=== PATIENT | female | born 1930 | race Caucasian/White ===

== ENCOUNTER 2017-01-21 19:27 | Inpatient (IN) | payer MEDICARE, OTHER ==
[~2017-01-21] VITALS: Ht 170.2 cm; Wt 92.2 kg
[2017-01-21] MEDS ORDERED: SOD CHLORIDE 0.9% 1,000 ML IV STA (19:38)
--- NOTE | 2017-01-21 21:02 | RADRPT ---
PROCEDURE: XR Hip. CLINICAL INDICATION: Fall. TECHNIQUE: AP and frog lateral views of the right hip were performed. COMPARISON: No. FINDINGS: There is an acute intertrochanteric fracture of the proximal right femur. The innominate bone in th e right SI joint are normal as visualized. IMPRESSION: 1. Acute displaced impacted intertrochanteric fracture involving the proximal right femur. RPTAT:AAJJ Physician Seamus Date Time Electronically viewed and signed by Kayode Boyd Physician on 01/21/2017 21:02 BOOGIE/
--- NOTE | 2017-01-21 21:04 | RADRPT ---
PROCEDURE: Right knee x-ray CLINICAL INDICATION: Fall with right knee pain. TECHNIQUE: AP, lateral and oblique views of the knee were obtained. COMPARISON: None FINDINGS: There is narrowing of the joint between the femur and tibia. There spurs off the medial lateral fem oral and tibial condyles and articular surface of the patella. There is a small effusion. IMPRESSION: 1. Osteoarthritis of the right knee with narrowing of the patellofemoral and femoral tibial joint s paces. 2. No evidence of an acute fracture. 3. Small joint space effusion. RPTAT:AAJJ Physician Seamus Date Time Electronically viewed and signed by Kayode Boyd Physician on 01/21/2017 21:04 /
[2017-01-21] MEDS ORDERED: WARF4TAB52 PO (21:19)
[2017-01-21 21:35] LABS: ADD UMIC YES; URINE BILIRUBIN (Dip) NEGATIVE (NEGATIVE); URINE BLOOD (Dip) TRACE (NEGATIVE); URINE COLOR LT. YELLOW (YELLOW); URINE GLUCOSE (Dip) NEGATIVE (NEGATIVE); URINE KETONES (Dip) NEGATIVE (NEGATIVE); URINE LEUKOCYTE ESTERASE (Dip) TRACE (NEGATIVE); URINE NITRITE (Dip) NEGATIVE (NEGATIVE); URINE TOTAL PROTEIN (Dip) NEGATIVE (NEGATIVE); URINE UROBILINOGEN (Dip) 1.0 E.U./dL (0.1-1.0)
[2017-01-21 22:01] LABS: BACTERIA,URINE FEW; SQUAMOUS EPITHELIAL CELL,UR FEW; URINE RBCS 0-2 /HPF (0)
[2017-01-21 22:06] LABS: ADD SCAN DIFF NO
[2017-01-21 22:08] LABS: BASOPHILS % 0.4 % (0.0-2.0); EOSINOPHILS # 0.2 10^3/ul (0.0-0.5); EOSINOPHILS % 1.7 % (0.0-7.0); HEMATOCRIT 44.8 % (37.0-47.0); HEMOGLOBIN 14.5 g/dl (12.0-16.0); LYMPHOCYTES # 2.1 10^3/ul (0.8-2.9); LYMPHOCYTES % 22.7 % (15.0-51.0); MEAN CORPUSCULAR HEMOGLOBIN 28.6 pg (29.0-33.0); MEAN CORPUSCULAR HGB CONC 32.4 g/dl (32.0-37.0); MEAN CORPUSCULAR VOLUME 88.4 fl (82.0-101.0); MONOCYTE # 0.9 10^3/ul (0.3-0.9); MONOCYTES % 9.9 % (0.0-11.0); NEUTROPHILS % 64.5 % (39.0-77.0); PLATELET COUNT 176 10^3/UL (140-415); RED BLOOD COUNT 5.07 10^6/ul (4.20-5.40); RED CELL DISTRIBUTION WIDTH 14.6 % (11.5-14.5); WHITE BLOOD COUNT 9.3 10^3/ul (4.8-10.8)
[2017-01-21 22:18] LABS: INR 2.16; PROTIME 24.3 Sec (12.2-14.2); PT RATIO 1.9
[2017-01-21 22:33] LABS: ALBUMIN 3.8 g/dl (3.3-4.9); CHLORIDE 100 mmol/L (97-110); POTASSIUM 3.7 mmol/L (3.5-5.1); SODIUM 137 mmol/L (135-144)
[2017-01-21 22:36] LABS: ALANINE AMINOTRANSFERASE 34 IU/L (13-69); ALBUMIN/GLOBULIN RATIO 1.11; ALKALINE PHOSPHATASE 75 IU/L (42-121); ANION GAP 12 (8-16); ASPARTATE AMINO TRANSFERASE 40 IU/L (15-46); BILIRUBIN,INDIRECT 0.5 mg/dl (0-1.1); BILIRUBIN,TOTAL 0.5 mg/dl (0.2-1.3); BLOOD UREA NITROGEN 16 mg/dl (7-20); CARBON DIOXIDE 29 mmol/L (21-31); CREATININE 0.84 mg/dl (0.44-1.00); GLUCOSE 111 mg/dl (70-220); TOTAL PROTEIN 7.2 g/dl (6.1-8.1)
[2017-01-21 22:37] LABS: CALCIUM 8.8 mg/dl (8.4-10.2)
--- NOTE | 2017-01-21 22:53 | ERA ---
ER Documentation Chief Complaint Date/Time DATE: 01/21/17 TIME: 22:47 Chief Complaint rt hip pain radiating to rt thigh r/t ground level fall,on Warfarin HPI This is a very pleasant 86-year-old female that presents to the emergency department brought in by EMS after the patient had a mechanical trip and fall while feeding her birds in her garden. She landed on her right hip and was unable to get up secondary to the pain. She indicates she is experiencing 10 out of 10 pain in her right hip and radiates to her thigh and knee. She did not hit her head or lose consciousness. She is on warfarin she has a history of pulmonary embolisms. She denies any shortness of breath at rest or exertion at this time and has no chest pain. She did not take any analgesic medication prior to arrival. ROS All systems reviewed and are negative except as per history of present illness. Medications Home Meds Reported Medications Warfarin Sodium* (Warfarin Sodium*) Unknown Strength Tablet, PO DAILY, TAB PATIENT NOT ABLE TO TELL THE DOSAGE 01/21/17 Allergies Allergies: Coded Allergies: No Known Allergy (Unverified , 01/21/17) PMhx/Soc History of Surgery: Yes (GALL BLADDER REMOVAL) Anesthesia Reaction: No Hx Neurological Disorder: No Hx Respiratory Disorders: Yes (PE ON WARFARIN) Hx Cardiac Disorders: No Hx Psychiatric Problems: No Hx Miscellaneous Medical Probl: No Hx Alcohol Use: No Hx Substance Use: No Hx Tobacco Use: No Smoking Status: Never smoker Physical Exam Vitals Vital Signs Date Time Temp Pulse Resp B/P Pulse Ox O2 Delivery O2 Flow Rate FiO2 01/21/17 19:37 97.7 71 18 176/79 96 Physical Exam Constitutional:Well-developed. Well-nourished. HEENT:Normocephalic. Atraumatic.Pupils were equal round reactive to light. Moist mucous membranes.No tonsillar exudates. No nasal septal hematoma. No hemotympanum. Neck: No nuchal rigidity. No lymphadenopathy. No posterior cervical spine tenderness or step-offs. Respiratory: Not using accessory muscles of respiration.Lungs were clear to auscultation bilaterally. No rhonchi. No rales. No wheezing. Cardiovascular: Regular rate regular rhythm.No murmurs. No rubs were appreciated.S1, S2 normal. Distal pulses are palpable 2+ bilaterally. GI: Abdomen was soft. Nontender. Non Distended. No pulsatile abdominal masses or bruits. No rebound. No guarding. Bowel sounds were present and normal. Muscle skeletal: Full range of motion the bilateral upper extremities. Right lower extremity is shortened and externally rotated. Significant tenderness over the proximal right femur. Tenderness over the right patella. Stress testing of the right knee unable to be obtained due to suspected fracture of the right hip and patient unable to lift the right lower extremity against gravity. Muscular strength 4 out of 5 in the left lower extremity but movement of the left lower extremity aggravated the pain at the right hip. Skin: No petechia, no purpura. No lesions on the palms or the soles of the feet. No maculopapular rash. NEURO: Patient was alert, awake, orientated x3.No facial droop. Gait not observed due to suspected fracture of the right hip. speech had regular rate and rhythm. No focal neurological deficits. Result Diagram: 01/21/17205401/21/172054 Results 24 hrs Laboratory Tests Test 01/21/17 20:55 01/21/17 21:20 White Blood Count 9.310^3/ul Red Blood Count 5.0710^6/ul Hemoglobin 14.5g/dl Hematocrit 44.8% Mean Corpuscular Volume 88.4fl Mean Corpuscular Hemoglobin 28.6pg Mean Corpuscular Hemoglobin Concent 32.4g/dl Red Cell Distribution Width 14.6% Platelet Count 03949^3/UL Mean Platelet Volume 11.0fl Neutrophils % 64.5% Lymphocytes % 22.7% Monocytes % 9.9% Eosinophils % 1.7% Basophils % 0.4% Nucleated Red Blood Cells % 0.0/100WBC Neutrophils # 6.010^3/ul Lymphocytes # 2.110^3/ul Monocytes # 0.910^3/ul Eosinophils # 0.210^3/ul Basophils # 0.010^3/ul Nucleated Red Blood Cells # 0.010^3/ul Prothrombin Time 24.3Sec Prothrombin Time Ratio 1.9 INR International Normalized Ratio 2.16 Activated Partial Thromboplast Time 33.0Sec Sodium Level 137mmol/L Potassium Level 3.7mmol/L Chloride Level 100mmol/L Carbon Dioxide Level 29mmol/L Anion Gap 12 Blood Urea Nitrogen 16mg/dl Creatinine 0.84mg/dl Glucose Level 111mg/dl Calcium Level 8.8mg/dl Total Bilirubin 0.5mg/dl Direct Bilirubin 0.00mg/dl Indirect Bilirubin 0.5mg/dl Aspartate Amino Transf (AST/SGOT) 40IU/L Alanine Aminotransferase (ALT/SGPT) 34IU/L Alkaline Phosphatase 75IU/L Troponin I < 0.012ng/ml Total Protein 7.2g/dl Albumin 3.8g/dl Globulin 3.40g/dl Albumin/Globulin Ratio 1.11 Urine Color LT. YELLOW Urine Clarity CLEAR Urine pH 6.5 Urine Specific [place] 1.010 Urine Ketones NEGATIVE Urine Nitrite NEGATIVE Urine Bilirubin NEGATIVE Urine Urobilinogen 1.0 E.U./dL Urine Leukocyte Esterase TRACE Urine Microscopic RBC 0-2/HPF Urine Microscopic WBC 0-2/HPF Urine Squamous Epithelial Cells FEW Urine Bacteria FEW Urine Hemoglobin TRACE Urine Glucose NEGATIVE% Urine Total Protein NEGATIVE Current Medications Medications (Trade) Dose Ordered Sig/Chata Route PRN Reason Start Time Stop Time Status Last Admin Dose Admin Sodium Chloride (NS) 1,000 ml @ 1,000 mls/hr Q1H STAT IV 01/21/17 19:38 01/21/17 20:37 DC 01/21/17 20:51 Procedures/MDM This is a very pleasant 86-year-old female that presented to the emergency department after a ground-level fall. The patient is on blood thinners and IV access was immediately established, patient was placed in a adult care manager with continuous pulse oximetry. She was given intravenous morphine for analgesic control followed by Zofran as an antiemetic. I obtained three-view radiographs of the right hip on the right knee. The patient had no fractures or dislocation of her right knee. Radiographic imaging of the right hip reviewed by both myself the radiologist indicated an acute displaced impacted intertrochanteric fracture involving the proximal right femur. I obtained a 12-lead EKG for preoperative evaluation. 12 Lead EKG tracing ordered and reviewed by myself showed: Normal sinus rhythm of 66 bpm and no arrhythmia. MD interval prolonged at 236 ms with a first-degree AV block. QRS duration normal. No ST segment elevation No ST segment depression. No changes consistent with acute ischemia. Critical Care: Time: 55 minutes Treatments/Evaluations: Close monitoring and treatment of unstable vital signs, cardiorespiratory, and neurologic status, while maintaining tight balance of fluid, respiratory, and cardiac interventions. Time does not include performing any of the above billable procedures. The patient states her primary care physician is Dr. Anabel Cole. Multiple attempts were made to reach him but after several hours been unsuccessful to get hold of him he was admitted to the panel physician Dr. Rodriguez. The patient will be admitted to the medical surgical floor in serious condition with anticipated stay of greater than 2 midnights. I have placed an orthopedic consult and currently waiting to speak to the orthopedic surgeon Departure Diagnosis: Primary Impression: Closed intertrochanteric fracture of right hip Qualified Code: S72.141A - Closed intertrochanteric fracture of right hip, initial encounter Condition: Serious PIOSHIRLENE Jan 21, 2017 22:53
[2017-01-21 23:00] LABS: TROPONIN-I < 0.012 ng/ml (0.00-0.12)
[2017-01-21] MEDS ORDERED: ONDANSETRON 4 MG INJ IV STA (23:24)
[2017-01-21] MEDS ORDERED: morphine 2 MG INJ IV STA (23:24)
[2017-01-21] MEDS ORDERED: ONDANSETRON 4 MG INJ IV PRN (23:30)
[2017-01-22] VITALS (18 sets, daily range): BP systolic 93–145; BP diastolic 41–74; PULSE 74–110; RESP 12–24; TEMP 97.9; Ht 170.2 cm; Wt 92.2 kg
[2017-01-22] MEDS ORDERED: NACL 0.9% 3 ML SYG IV SCH (01:00)
[2017-01-22] MEDS ORDERED: ALBUTEROL/IPRATROPIUM (NEB) 3 ML AMP HHN PRN (01:00)
[2017-01-22] MEDS ORDERED: ACETAMINOPHEN 325 MG TAB PO PRN (01:00)
[2017-01-22] MEDS ORDERED: OXYCODONE/ACETAMINOPHEN (5/325) TAB PO PRN (01:00)
[2017-01-22] MEDS ORDERED: morphine 2 MG INJ IV PRN ×2 (01:00→20:30)
[2017-01-22] MEDS ORDERED: ONDANSETRON 4 MG INJ IV PRN ×3 (01:00→21:00)
[2017-01-22] MEDS: DEXTROSE 5%-0.45% NACL 1,000 ML IV SCH ×2 (02:25→11:44)
[2017-01-22 05:46] LABS: ADD SCAN DIFF NO
--- NOTE | 2017-01-22 05:47 | HP ---
Date/Time of Note Date/Time of Note DATE: 01/22/17 TIME: 05:43 Assessment/Plan VTE Prophylaxis VTE Prophylaxis Intervention: SCD's Lines/Catheters IV Catheter Type (from Nrsg): Saline Lock Urinary Cath still in place: No (WILL GET a order) Assessment/Plan Assessment/Plan IMPRESSION 1. Right Proximal Femur fracture, 2/2 mechanical fall 2. Hx of PE on coumadin, INR 2.1 PLAN Pain mgmt Awaiting Ortho eval Hold coumadin HPI/ROS Admit Date/Time Admit Date/Time Jan 21, 2017 at 23:22 Hx of Present Illness Patient is an 86 yo female with hx of PE on coumadin who had a mechanical fall while feeding her birds. xray in ER showed Acute displaced impacted intertrochanteric fracture involving the proximal right femur. Ortho has been consulted. She denied chest pain, SOB, palpitations or lightheadedness. . PMH/Family/Social Past Medical History Medical History: other (Pulmonary Embolism) Past Surgical History Past Surgical Hx: cholecystectomy Social History Alcohol Use: none Smoking Status: Never smoker Drug Use: none Exam/Review of Systems Vital Signs Vitals Vital Signs Date Time Temp Pulse Resp B/P Pulse Ox O2 Delivery O2 Flow Rate FiO2 01/22/17 02:03 21 01/22/17 01:30 98.3 77 19 145/71 94 Room Air Exam Constitutional: alert, oriented Head: atraumatic, normocephalic Eyes: EOMI, PERRL Respiratory: clear to auscultation, normal air movement Cardiovascular: nl pulses, regular rate and rhythm Gastrointestinal: non-tender, soft Musculoskeletal: other (right hip tenderness) Extremities: normal pulses Labs Result Diagram: 01/21/17205401/21/172054 Medications Medications Current Medications Dextrose/Sodium Chloride (D5-1/2ns) 1,000 ml @ 100 mls/hr Q10H IV Last administered on 01/22/17t 02:25; Admin Dose 100 MLS/HR; Start 01/22/17 at 00:57 Ondansetron HCl (Zofran Inj) 4 mg Q6H PRN IV NAUSEA AND/OR VOMITING; Start at 01:00 Acetaminophen (Tylenol Tab) 650 mg Q6H PRN PO PAIN LEVEL 1-3 OR FEVER; Start at 01:00 Oxycodone/ Acetaminophen (Percocet (5/ 325)) 1 tab Q6H PRN PO MODERATE PAIN LEVEL 4-6; Start 01/22/17 at 01:00 Morphine Sulfate (morphine) 3 mg Q4H PRN IV SEVERE PAIN LEVEL 7-10; Start 01/22 at 01:00 MANJINDER TRUJILLO MD Jan 22, 2017 05:47
[2017-01-22 06:10] LABS: INR 2.37; PARTIAL THROMBOPLASTIN TIME 34.9 Sec (25.0-35.0); PROTIME 26.2 Sec (12.2-14.2)
[2017-01-22 06:17] LABS: ALBUMIN 3.2 g/dl (3.3-4.9); ALBUMIN/GLOBULIN RATIO 1.06; BILIRUBIN,INDIRECT 0.7 mg/dl (0-1.1); BILIRUBIN,TOTAL 0.7 mg/dl (0.2-1.3); CALCIUM 8.1 mg/dl (8.4-10.2); CREATININE 0.67 mg/dl (0.44-1.00); POTASSIUM 4.3 mmol/L (3.5-5.1); TOTAL PROTEIN 6.2 g/dl (6.1-8.1)
[2017-01-22] MEDS ORDERED: CEFAZOLIN 1 GM INJ ONE (07:00)
[2017-01-22 10:43] LABS: BASOPHILS % 0.3 % (0.0-2.0); HEMATOCRIT 45.2 % (37.0-47.0); HEMOGLOBIN 13.7 g/dl (12.0-16.0); LYMPHOCYTES # 1.4 10^3/ul (0.8-2.9); LYMPHOCYTES % 13.8 % (15.0-51.0); MEAN CORPUSCULAR HEMOGLOBIN 27.3 pg (29.0-33.0); MEAN CORPUSCULAR HGB CONC 30.3 g/dl (32.0-37.0); MEAN PLATELET VOLUME 11.3 fl (7.4-10.4); MONOCYTE # 1.3 10^3/ul (0.3-0.9); MONOCYTES % 12.6 % (0.0-11.0); NEUTROPHIL # 7.5 10^3/ul (1.6-7.5); NEUTROPHILS % 72.9 % (39.0-77.0); PLATELET COUNT 142 10^3/UL (140-415); RED BLOOD COUNT 5.02 10^6/ul (4.20-5.40); RED CELL DISTRIBUTION WIDTH 14.9 % (11.5-14.5); WHITE BLOOD COUNT 10.3 10^3/ul (4.8-10.8)
--- NOTE | 2017-01-22 17:20 | PN ---
Date/Time of Note Date/Time of Note DATE: 01/22/17 TIME: 17:16 Assessment/Plan VTE Prophylaxis VTE Prophylaxis Intervention: SCD's Lines/Catheters IV Catheter Type (from Nrs): Saline Lock Assessment/Plan Chief Complaint/Hosp Course 1. Right Proximal Femur fracture, 2/2 mechanical fall -Ortho consult appreciated pt has no Cardiac Hx or Hx of CVA benefits of surgery outweigh risks plan for surgery today -pain management 2. Hx of PE on coumadin, INR 2.1 -Hold coumadin 2/2 surgery PPx- SCD's Problems: Subjective 24 Hr Interval Summary Constitutional: no complaints Exam/Review of Systems Vital Signs Vitals Vital Signs Date Time Temp Pulse Resp B/P Pulse Ox O2 Delivery O2 Flow Rate FiO2 01/22/17 07:48 98.1 73 18 136/67 96 01/22/17 02:03 21 01/22/17 01:30 Room Air Intake and Output 01/21/17 01/21/17 01/22/17 15:00 23:00 07:00 Intake Total 400 ml Output Total 800 ml Balance -400 ml Exam Constitutional: alert, oriented Respiratory: clear to auscultation Cardiovascular: regular rate and rhythm Gastrointestinal: soft, No distended Musculoskeletal: nl extremities to inspection Results Result Diagram: 01/22/17 0453 01/22/17 0453 Results 24 hrs Laboratory Tests Test 01/21/17 20:55 01/21/17 21:20 01/22/17 04:53 White Blood Count 9.3 10.3 Red Blood Count 5.07 5.02 Hemoglobin 14.5 13.7 Hematocrit 44.8 45.2 Mean Corpuscular Volume 88.4 90.0 Mean Corpuscular Hemoglobin 28.6 L 27.3 L Mean Corpuscular Hemoglobin Concent 32.4 30.3 L Red Cell Distribution Width 14.6 H 14.9 H Platelet Count 176 142 Mean Platelet Volume 11.0 H 11.3 H Neutrophils % 64.5 72.9 Lymphocytes % 22.7 13.8 L Monocytes % 9.9 12.6 H Eosinophils % 1.7 0.0 Basophils % 0.4 0.3 Nucleated Red Blood Cells % 0.0 0.0 Neutrophils # 6.0 7.5 Lymphocytes # 2.1 1.4 Monocytes # 0.9 1.3 H Eosinophils # 0.2 0.0 Basophils # 0.0 0.0 Nucleated Red Blood Cells # 0.0 0.0 Prothrombin Time 24.3 H 26.2 H Prothrombin Time Ratio 1.9 2.0 INR International Normalized Ratio 2.16 2.37 Activated Partial Thromboplast Time 33.0 34.9 Sodium Level 137 136 Potassium Level 3.7 4.3 Chloride Level 100 106 Carbon Dioxide Level 29 26 Anion Gap 12 8 Blood Urea Nitrogen 16 14 Creatinine 0.84 0.67 Glucose Level 111 179 Calcium Level 8.8 8.1 L Total Bilirubin 0.5 0.7 Direct Bilirubin 0.00 0.00 Indirect Bilirubin 0.5 0.7 Aspartate Amino Transf (AST/SGOT) 40 36 Alanine Aminotransferase (ALT/SGPT) 34 30 Alkaline Phosphatase 75 60 Troponin I < 0.012 Total Protein 7.2 6.2 # Albumin 3.8 3.2 L Globulin 3.40 H 3.00 Albumin/Globulin Ratio 1.11 1.06 Urine Color LT. YELLOW Urine Clarity CLEAR Urine pH 6.5 Urine Specific [place] 1.010 Urine Ketones NEGATIVE Urine Nitrite NEGATIVE Urine Bilirubin NEGATIVE Urine Urobilinogen 1.0 E.U./dL Urine Leukocyte Esterase TRACE H Urine Microscopic RBC 0-2 Urine Microscopic WBC 0-2 Urine Squamous Epithelial Cells FEW Urine Bacteria FEW Urine Hemoglobin TRACE Urine Glucose NEGATIVE Urine Total Protein NEGATIVE Phosphorus Level 3.0 Magnesium Level 2.0 Medications Medications Current Medications Dextrose/Sodium Chloride (D5-1/2ns) 1,000 ml @ 100 mls/hr Q10H IV Last administered on 01/22/17 11:44; Admin Dose 100 MLS/HR; Start 01/22/17 at 00:57 Ondansetron HCl (Zofran Inj) 4 mg Q6H PRN IV NAUSEA AND/OR VOMITING; Start at 01:00 Acetaminophen (Tylenol Tab) 650 mg Q6H PRN PO PAIN LEVEL 1-3 OR FEVER; Start at 01:00 Oxycodone/ Acetaminophen (Percocet (5/ 325)) 1 tab Q6H PRN PO MODERATE PAIN LEVEL 4-6; Start 01/22/17 at 01:00 Morphine Sulfate (morphine) 3 mg Q4H PRN IV SEVERE PAIN LEVEL 7-10; Start 01/22 at 01:00 MATILDE SAUER Jan 22, 2017 17:20
--- NOTE | 2017-01-22 18:32 | HPN ---
Date/Time of Note Date/Time of Note DATE: 01/22/17 TIME: 18:32 Interval H&P Admission Note Pt. seen H&P reviewed: No system changes CHELITA HOLT MD Jan 22, 2017 18:32
[2017-01-22] MEDS ORDERED: MEPERIDINE 100 MG INJ ONE (18:46)
[2017-01-22] MEDS ORDERED: PROPOFOL 20 ML ONE (18:46)
[2017-01-22] MEDS ORDERED: LIDOCAINE 2% (SDV) 5 ML INJ ONE (18:46)
[2017-01-22] MEDS ORDERED: ROCURONIUM 50 MG INJ ONE (18:46)
[2017-01-22] MEDS ORDERED: GLYCOPYRROLATE 0.4 MG INJ ONE ×2 (18:46→19:43)
[2017-01-22] MEDS ORDERED: SUCCINYLCHOLINE CHLORIDE 100 MG/5 ML SYG IV ONE (18:46)
[2017-01-22] MEDS ORDERED: NEOSTIGMINE 3 MG/3 ML SYRINGE ONE ×2 (18:46→19:44)
[2017-01-22] MEDS ORDERED: hydrALAzine 20 MG INJ IV PRN (19:00)
[2017-01-22] MEDS ORDERED: LABETALOL HCL 20MG INJ IV PRN (19:00)
[2017-01-22] MEDS ORDERED: MEPERIDINE 25 MG INJ IV PRN (19:00)
[2017-01-22] MEDS ORDERED: DIPHENHYDRAMINE 50 MG INJ IV PRN (19:00)
[2017-01-22] MEDS ORDERED: MIDAZOLAM 1 MG/ML 2 ML INJ IV PRN (19:00)
[2017-01-22] MEDS ORDERED: METOCLOPRAMIDE 10 MG INJ IV PRN (19:00)
[2017-01-22] MEDS ORDERED: morphine (1 MG/ML) 10ML SYRINGE IV PRN ×2 (19:00)
[2017-01-22] MEDS ORDERED: EPHEDrine SULFATE 50 MG/5 ML SYG IV PRN (19:00)
[2017-01-22] MEDS ORDERED: FENTAnyl 50 MCG/ML VIAL IV PRN ×2 (19:00)
[2017-01-22] MEDS ORDERED: HYDROmorphONE (0.2 MG/ML) 10ML SYG IV PRN ×2 (19:00)
[2017-01-22] MEDS ORDERED: POLYMYXIN/BACITRACIN 1L IRRIG IRR ONE (19:41)
[2017-01-22] MEDS ORDERED: BACITRACIN/POLYMYXIN 28.35 GM OINT TOP ONE (19:46)
[2017-01-22] MEDS ORDERED: EPHEDrine SULFATE 50 MG/5 ML SYG ONE (19:53)
[2017-01-22] MEDS ORDERED: HYDROCODONE/APAP (10/325) TAB PO PRN (20:30)
[2017-01-22] MEDS ORDERED: CEFAZOLIN 1 GM INJ IVPB ONE (22:00)
[2017-01-22] MEDS ORDERED: CEFAZOLIN 1 GM/50 ML (PMX) 50 ML IVPB SCH (22:00)
[2017-01-23] MEDS: DEXTROSE 5%-0.45% NACL 1,000 ML IV SCH ×3 (00:13→18:17)
[2017-01-23 00:15] VITALS: BP 127/71; RESP 19
--- NOTE | 2017-01-23 02:33 | CONS ---
DATE OF ADMISSION: 01/21/2017 DATE OF CONSULTATION: 01/21/2017 ORTHOPEDIC CONSULTATION CHIEF COMPLAINT: Right hip pain. HISTORY OF PRESENT ILLNESS: The patient is an 86-year-old female who sustained a fall and presented with complaints of pain in the right hip. PHYSICAL EXAMINATION: On examination, the patient is neurovascularly intact. Compartments are soft. She is not able to move the leg at all with pain in the right hip. X-rays revealed a displaced comminuted intratrochanteric fracture of the right hip. PLAN: The patient will need to proceed with surgery consisting of locked intramedullary nailing. R isks and complications were reviewed with the patient. She is alert and agrees to the procedure. Dictated By: CHELITA HENRY/PARUL Conf#: [id number] DID#: [id number]
--- NOTE | 2017-01-23 02:42 | OPR ---
DATE OF OPERATION: SURGEON: Chelita Yu MD ANESTHESIA: General. PREOPERATIVE DIAGNOSIS: Right hip displaced intertrochanteric fracture. POSTOPERATIVE DIAGNOSIS: Right hip displaced intertrochanteric fracture. OPERATION PERFORMED: 1. Right hip locked intramedullary nailing using Friedman [employer] Nephew Intertan nail 11.5 mm in diameter with a 100 mm lag screw. 2. Closed reduction of the right hip fracture. 3. Interpretation and intraoperative fluoroscopy x-ray. ESTIMATED BLOOD LOSS: 200 mL. COMPLICATIONS: None. DESCRIPTION OF PROCEDURE: Patient taken to the operating room and general anesthetic given with int ubation. Then 2 grams of Kefzol given for prophylaxis. The patient carefully positioned on the fra cture table with padding of all extremities. Right hip prepped and draped in the usual sterile gaitan er. C-arm draped and brought over the right hip. A 2 inch incision made proximal to the trochanter . Fascia divided. A guide pin was inserted into the tip of the trochanter, followed by a guide kofi under x-ray . Reaming to size 13 mm and the 11.5 mm diameter nail was placed, 38 cm in length with good fixation of the fracture. 100 mm lag screw was placed into the center of the femoral hea d, locked in place. Stable fixation was achieved in good alignment. Final x-ray was satisfactory. Wound irrigated with antibiotic solution. Hemostasis ascertained using cautery. Fascia closed wit h #1 Vicryl suture. Skin closed with [place]. Compression bandage applied. Anesthetic reversed. The patient taken to recovery room in stable condition. Dictated By: CHELITA HENRY/PARUL Conf#: [id number] DID#: [id number]
[2017-01-23] MEDS: CEFAZOLIN 1 GM/50 ML (PMX) 50 ML IVPB SCH ×3 (02:45→18:19)
[2017-01-23 06:11] VITALS: BP 111/59; PULSE 84; RESP 19
[2017-01-23 06:39] LABS: CALCIUM 7.5 mg/dl (8.4-10.2); CREATININE 0.65 mg/dl (0.44-1.00); MAGNESIUM 1.9 mg/dl (1.7-2.5); PHOSPHORUS 2.1 mg/dl (2.5-4.9); POTASSIUM 4.1 mmol/L (3.5-5.1)
[2017-01-23 07:00] VITALS: BP 114/60; RESP 18
[2017-01-23 07:05] LABS: ADD SCAN DIFF NO
[2017-01-23 07:07] LABS: HEMATOCRIT 39.7 % (37.0-47.0); HEMOGLOBIN 12.5 g/dl (12.0-16.0); MEAN CORPUSCULAR HEMOGLOBIN 28.2 pg (29.0-33.0); MEAN CORPUSCULAR HGB CONC 31.5 g/dl (32.0-37.0); MEAN CORPUSCULAR VOLUME 89.4 fl (82.0-101.0); MEAN PLATELET VOLUME 10.8 fl (7.4-10.4); PLATELET COUNT 116 10^3/UL (140-415); RED BLOOD COUNT 4.44 10^6/ul (4.20-5.40); RED CELL DISTRIBUTION WIDTH 14.8 % (11.5-14.5); WHITE BLOOD COUNT 9.8 10^3/ul (4.8-10.8)
--- NOTE | 2017-01-23 08:55 | RADRPT ---
PROCEDURE: X-ray fluoroscopy guidance CLINICAL INDICATION: Right hip fracture fixation, fluoroscopic guidance. TECHNIQUE: Fluoroscopic guidance was utilized for an intraoperative procedure. COMPARISON: None available FINDINGS: Fluoroscopic guidance was utilized for and intraoperative procedure. 108 seconds of fluoroscopy time was utilized for the procedure. 17 x-ray images were obtained during the procedure in progress. Fin al images demonstrate fracture fragments in near anatomic alignment. IMPRESSION: X-ray fluoroscopic guidance utilized for intraoperative procedure. Final images demonstrate right hip fracture fragments in near anatomic alignment. Please see procedure note for details. RPTAT: AA .Edwin Guaman MD, MD Date Time Electronically viewed and signed by .Edwin Guaman MD, MD on 01/23/2017 08:55 .P/
[2017-01-23 10:51] LABS: BASOPHIL # 0.1 10^3/ul (0.0-0.1); EOSINOPHILS # 0.2 10^3/ul (0.0-0.5); LYMPHOCYTES # 1.3 10^3/ul (0.8-2.9); MONOCYTE # 0.6 10^3/ul (0.3-0.9)
--- NOTE | 2017-01-23 15:29 | PN ---
Date/Time of Note Date/Time of Note DATE: 01/23/17 TIME: 15:28 Assessment/Plan VTE Prophylaxis VTE Prophylaxis Intervention: SCD's Assessment/Plan Chief Complaint/Hosp Course 1. Right Proximal Femur fracture, 2/2 mechanical fall -s/p Surgical repair POD#1 -pain management -will need SNF upon DC 2. Hx of PE on coumadin, INR 2.1 -Hold coumadin 2/2 surgery PPx- SCD's Problems: Subjective 24 Hr Interval Summary Constitutional: no complaints Exam/Review of Systems Vital Signs Vitals Vital Signs Date Time Temp Pulse Resp B/P Pulse Ox O2 Delivery O2 Flow Rate FiO2 01/23/17 07:00 97.9 90 18 114/60 95 01/23/17 06:11 Nasal Cannula 01/22/17 21:00 2.0 01/22/17 02:03 21 Intake and Output 01/22/17 01/22/17 01/23/17 15:00 23:00 07:00 Intake Total 600 ml 1300 ml 1250 ml Output Total 1800 ml 800 ml Balance 600 ml -500 ml 450 ml Exam Constitutional: alert Respiratory: clear to auscultation Cardiovascular: regular rate and rhythm Gastrointestinal: soft, No distended Musculoskeletal: nl extremities to inspection Results Result Diagram: 01/23/17 0451 01/23/17 0451 Results 24 hrs Laboratory Tests Test 01/23/17 04:51 White Blood Count 9.8 Red Blood Count 4.44 Hemoglobin 12.5 Hematocrit 39.7 Mean Corpuscular Volume 89.4 Mean Corpuscular Hemoglobin 28.2 L Mean Corpuscular Hemoglobin Concent 31.5 L Red Cell Distribution Width 14.8 H Platelet Count 116 L Mean Platelet Volume 10.8 H Neutrophils % 71.0 Band Neutrophils % 5.0 Lymphocytes % 13.0 L Monocytes % 6.0 Eosinophils % 2.0 Basophils % 1.0 Metamyelocytes % 2.0 H Neutrophils # 7.0 Lymphocytes # 1.3 Monocytes # 0.6 Eosinophils # 0.2 Basophils # 0.1 Metamyelocytes # 0.2 Differential Comment MANUAL DIFF Sodium Level 133 L Potassium Level 4.1 Chloride Level 106 Carbon Dioxide Level 25 Anion Gap 6 L Blood Urea Nitrogen 10 Creatinine 0.65 Glucose Level 148 Calcium Level 7.5 L Phosphorus Level 2.1 L Magnesium Level 1.9 Medications Medications Current Medications Dextrose/Sodium Chloride (D5-1/2ns) 1,000 ml @ 100 mls/hr Q10H IV Last administered on 01/23/17 09:16; Admin Dose 100 MLS/HR; Start 01/22/17 at 00:57 Ondansetron HCl (Zofran Inj) 4 mg Q6H PRN IV NAUSEA AND/OR VOMITING; Start at 01:00 Acetaminophen (Tylenol Tab) 650 mg Q6H PRN PO PAIN LEVEL 1-3 OR FEVER; Start at 01:00 Oxycodone/ Acetaminophen (Percocet (5/ 325)) 1 tab Q6H PRN PO MODERATE PAIN LEVEL 4-6; Start 01/22/17 at 01:00 Morphine Sulfate (morphine) 3 mg Q4H PRN IV SEVERE PAIN LEVEL 7-10; Start 01/22 at 01:00 Acetaminophen/ Hydrocodone Bitart (Pratt (10/325)) 1 tab Q4H PRN PO PAIN; Start 01/22/17 at 20:30 Morphine Sulfate (morphine) 2 mg Q2H PRN IV PAIN; Start 01/22/17 at 20:30 Ondansetron HCl 4 mg 4 mg Q4H PRN IV NAUSEA AND/OR VOMITING; Start 01/22/17 at 21:00 Cefazolin Sodium (Ancef 1 Gm/50 ml (Pmx)) 50 ml @ 100 mls/hr Q8H IVPB Last administered on 01/23/17 11:12; Admin Dose 100 MLS/HR; Start 01/23/17 at 03:00 ; Stop 01/23/17 at 19:29 MATILDE SAUER Jan 23, 2017 15:29
[2017-01-23 19:33] VITALS: BP 108/56; RESP 18
[2017-01-24] MEDS: DEXTROSE 5%-0.45% NACL 1,000 ML IV SCH ×2 (04:12→15:30)
[2017-01-24 05:09] LABS: ADD SCAN DIFF NO
[2017-01-24 05:20] LABS: BASOPHILS % 0.2 % (0.0-2.0); EOSINOPHILS # 0.1 10^3/ul (0.0-0.5); EOSINOPHILS % 1.4 % (0.0-7.0); HEMATOCRIT 37.7 % (37.0-47.0); HEMOGLOBIN 11.7 g/dl (12.0-16.0); LYMPHOCYTES # 1.9 10^3/ul (0.8-2.9); MEAN CORPUSCULAR HEMOGLOBIN 27.5 pg (29.0-33.0); MEAN CORPUSCULAR VOLUME 88.5 fl (82.0-101.0); MEAN PLATELET VOLUME 11.2 fl (7.4-10.4); MONOCYTE # 1.3 10^3/ul (0.3-0.9); MONOCYTES % 15.6 % (0.0-11.0); NEUTROPHIL # 5.1 10^3/ul (1.6-7.5); NEUTROPHILS % 60.4 % (39.0-77.0); PLATELET COUNT 112 10^3/UL (140-415); RED BLOOD COUNT 4.26 10^6/ul (4.20-5.40); RED CELL DISTRIBUTION WIDTH 15.3 % (11.5-14.5); WHITE BLOOD COUNT 8.4 10^3/ul (4.8-10.8)
[2017-01-24 05:32] LABS: POTASSIUM 3.9 mmol/L (3.5-5.1)
[2017-01-24 05:35] LABS: CREATININE 0.74 mg/dl (0.44-1.00); PHOSPHORUS 1.9 mg/dl (2.5-4.9)
[2017-01-24 05:36] LABS: CALCIUM 7.4 mg/dl (8.4-10.2)
[2017-01-24 08:30] VITALS: BP 120/60; PULSE 79; RESP 24
[2017-01-24] MEDS ORDERED: MAGNESIUM HYDROXIDE 30ML CUP PO ONE (12:30)
[2017-01-24] MEDS ORDERED: DOCU-216 PO (13:52)
[2017-01-24] MEDS ORDERED: Oxycodone/Acetamin (5/325) PO (13:52)
--- NOTE | 2017-01-24 16:43 | DS ---
DATE OF ADMISSION: 01/21/2017 DATE OF DISCHARGE: 01/24/2017 DISCHARGE DIAGNOSES: 1. Right proximal femur fracture secondary to mechanical fall, status post repair, [facility] after rehabilitation. 2. History of pulmonary embolism on Coumadin. Continue home Coumadin. HOSPITAL COURSE: The patient is an 86-year-old female with no significant medical history except fo r PE. The patient on Coumadin for that. The patient had a mechanical fall while feeding birds. In the ED, she was found to have a right proximal femur fracture. She underwent surgical repair. The patient was doing well and was working with PT. She was felt to benefit from a rehab and SNF. The patient was seen by her primary care physician who recommended that the patient be transferred to [facility]. Arrangements were made by telephonic case manager to get the patient transferred. On the day o f discharge, the patient's vitals, labs and physical exam were stable. She had no acute complaints and questions answered. CONDITION ON DISCHARGE: Stable. DISPOSITION: SNF. MEDICATIONS: Patient to continue her usual home medications. She was also given Colace 100 mg b.i. d. and Percocet 5/325 one tab p.o. q.4h. p.r.n. for pain. Once again, the patient is to continue h er home medication of warfarin. FOLLOWUP: The patient is to follow up with physicians at [facility]. Greater than 30 minutes was spent coordinating discharge of patient. Dictated By: MATILDE SAUER MD BS/NTS Conf#: [id number] DID#: [id number]
[2017-01-24] MEDS ORDERED: DOCUSATE SODIUM 100 MG CAP PO SCH (21:00)
[2017-01-24] MEDS ORDERED: SENNA TAB PO SCH (21:00)
== END 2017-01-24 16:18 | DRG 482 ==
LOC: E/R 19:27 → MS1 23:22
PROVIDERS: ADMIT Internal Medicine; ATTEND Internal Medicine
PROC: 0QS636Z Reposition Right Upper Femur with Intramedullary Internal Fixation Device, Percutaneous Approach (ICD-10-PCS; 2017-01-22)
PROC: 0QH606Z Insertion of Intramedullary Internal Fixation Device into Right Upper Femur, Open Approach (ICD-10-PCS; principal; 2017-01-22 19:30)
DX: S72.141A Displaced intertrochanteric fracture of right femur, initial encounter for closed fracture (principal); Z86.711 Personal history of pulmonary embolism; W01.0XXA Fall on same level from slipping, tripping and stumbling without subsequent striking against object, initial encounter; Y92.007 Garden or yard of unspecified non-institutional (private) residence as the place of occurrence of the external cause; Z79.01 Long term (current) use of anticoagulants
CPT/HCPCS: 73510; 73530; 73562; 80048; 80053; 81001; 81003; 83735; 84100; 84484; 85025; 85610; 85730; 93005; 96374; 96375; 97110; 97162; 97530; C1713; J0330; J0690; J2175; J2270; J2405; J2710; J7030; J7042

== ENCOUNTER → 2018-01-10 | Outpatient (CLI) | END | disposition home or self-care (01) ==